=== PATIENT | female | born 1980 | race Caucasian/White ===

== ENCOUNTER 2017-12-05 07:14 | Emergency (ER) | payer MEDICAID ==
--- NOTE | 2017-12-05 07:44 | EDM.PDOC ---
ED HPI GENERAL MEDICAL PROBLEM - General Chief Complaint: ENT Problem Stated Complaint: TEETH PAIN Time Seen by Provider: 12/05/17 07:39 Source of Information: Reports: Patient History Limitations: Reports: No Limitations - History of Present Illness INITIAL COMMENTS - FREE TEXT/NARRATIVE: 29-year-old female with dental pain, chronic intermittent but much worse over the past 48 hours. She saw a dentist a week and half ago and needs complete extraction of most of her teeth which she is planning on having done as soon as her son gets his teeth fixed next week. No fevers or chills, no significant swelling of the jaw. Location: Reports: Head, Face Severity: Moderate Associated Symptoms: Reports: Headaches, Loss of Appetite. Denies: Fever/Chills , Shortness of Breath Tooth/Teeth Pain Score (Numeric/FACES): 10 - Related Data Allergies Allergy/AdvReac Type Severity Reaction Status Date / Time No Known Allergies Allergy Verified 12/05/17 07:37 Home Meds: Home Meds NK [No Known Home Meds] 12/05/17 [History] Social & Family History - Tobacco Use Smoking Status *Q: Never Smoker - Caffeine Use Caffeine Use: Reports: Coffee, Soda - Recreational Drug Use Recreational Drug Use: No ED ROS ENT - Review of Systems Review Of Systems: See Below Constitutional: Denies: Fever, Chills Respiratory: Denies: Shortness of Breath Cardiovascular: Denies: Chest Pain GI/Abdominal: Denies: Abdominal Pain Musculoskeletal: Reports: Back Pain Skin: Reports: No Symptoms ED EXAM, ENT - Physical Exam Exam: See Below Exam Limited By: No Limitations General Appearance: Alert, No Apparent Distress Mouth/Throat: Other (Patient has severely advanced dental decay and erosions diffusely, exposed dentin and gingival disease. No significant swelling or erythema.) Neck: No: Lymphadenopathy (R), Lymphadenopathy (L) Respiratory/Chest: No Respiratory Distress Course - Vital Signs Last Recorded V/S: Last Vital Signs Temp 97.6 F 12/05/17 07:38 Pulse 91 12/05/17 07:38 Resp 14 12/05/17 07:38 BP 139/83 12/05/17 07:38 Pulse Ox 97 12/05/17 07:38 - Re-Assessments/Exams Free Text/Narrative Re-Assessment/Exam: 12/05/17 07:47 Patient was started on 300 mg clindamycin 3 times a day for the next 5 days, given 8 Vicodin for extra pain control and encouraged to recheck with a dentist in the next 3-4 days when she returns home. A [employer] search was done on the patient , her last narcotic prescription was 4 months ago. Departure - Departure Time of Disposition: 07:59 Disposition: Home, Self-Care 01 Condition: Good Clinical Impression: Pain due to dental caries - Discharge Information Instructions: Dental Abscess Referrals: PCP,None [Primary Care Provider] - Forms: ED Department Discharge Care Plan Goals: Take antibiotic as prescribed, a regular dose of ibuprofen or naproxen should help and add stronger pain medication sparingly if needed. You need to see the dentist as soon as possible to get this taken care of. Recheck sooner if worsening despite treatment.
== END 2017-12-05 08:00 | disposition home or self-care (01) ==
LOC: JP.ED 07:14
DX: K02.9 Dental caries, unspecified (principal)
CPT/HCPCS: 99283